=== PATIENT | male | born 1940 | race Hispanic/Latino ===

== ENCOUNTER 2018-06-04 14:01 | Emergency (ER) | payer MEDICARE, OTHER ==
[2018-06-04 15:49] LABS: Basophils % (Auto) 0.4 % (0.0-1.8); Eosinophils % (Auto) 0.3 % (0.0-4.3); Hematocrit 33.3 % (35.5-45.6); Hemoglobin 11.5 gm/dl (11.8-15.2); Lymphocytes # (Auto) 0.4 K/mm3 (1.2-5.4); Lymphocytes % (Auto) 8.6 % (13.4-35.0); Mean Corpuscular HGB Conc 35 % (32-34); Mean Corpuscular Hemoglobin 30 pg (28-32); Mean Corpuscular Volume 87 fl (84-94); Monocytes # (Auto) 0.4 K/mm3 (0.0-0.8); Monocytes % (Auto) 7.8 % (0.0-7.3); Platelet Count 236 K/mm3 (140-440); Red Blood Count 3.82 M/mm3 (3.65-5.03); Red Cell Distribution Width 15.8 % (13.2-15.2)
[2018-06-04 16:06] LABS: Albumin 3.6 g/dL (3.9-5); Calcium 8.6 mg/dL (8.4-10.2)
--- NOTE | 2018-06-04 17:31 | Emergency Department Report ---
ED Altered Mental Status HPI - General Chief Complaint: Altered Mental Status Stated Complaint: GENERAL WEAKNESS Time Seen by Provider: 06/04/18 16:33 Source: family, EMS Mode of arrival: Stretcher Limitations: Altered Mental Status - History of Present Illness Initial Comments: 78-year-old male with a past medical history of Parkinson's disease presents to the hospital after having an episode of hypotension and unresponsiveness. Patient lives alone however, he has a visiting nurse that comes to the home during the daytime. Visiting nurse alerted 911 because patient was unresponsive with a low blood pressure. His stepdaughter is at the bedside and states she does not live with him and was not present during the episode. She states that over the past month patient has been falling frequently. He walks with a cane at his baseline. Patient only complains of left hand pain. He has a chronic flexion of the fourth and fifth digit of the left hand secondary to arthritis. He fell and injured that hand last week and although swelling persists it is improved. He did not receive any imaging studies of his hand since the fall. He denies headache, neck pain, chest pain, fever, shortness of breath, abdominal pain, nausea, vomiting, diarrhea. Patient is apparently eating and drinking appropriately. Apparently the family and primary care doctor or making arrangements with 24-hour home care. Patient denies taking blood thinners including aspirin or Plavix - Related Data Home Medications Medication Instructions Recorded Confirmed Last Taken Unobtainable 12/31/14 12/31/14 Unknown Allergies Allergy/AdvReac Type Severity Reaction Status Date / Time No Known Allergies Allergy Unverified 12/31/14 16:07 ED Review of Systems ROS: Stated complaint: GENERAL WEAKNESS Other details as noted in HPI Comment: All other systems reviewed and negative ED Past Medical Hx - Past Medical History Previous Medical History?: Yes Additional medical history: Parkinson, Diff. urinating - Surgical History Past Surgical History?: Yes Additional Surgical History: Cystoscopy - Social History Smoking Status: Never Smoker Substance Use Type: None - Medications Home Medications: Home Medications Medication Instructions Recorded Confirmed Last Taken Type Unobtainable 12/31/14 12/31/14 Unknown History ED Physical Exam - General Limitations: Altered Mental Status - Other Other exam information: General: No limitations, patient is alert in no acute distress Head exam: Atraumatic, normocephalic Eyes exam: Normal appearance, pupils equal reactive to light, extraocular movements intact ENT: Moist mucous membrane, normal oropharynx Neck exam: Normal inspection, full range of motion, no meningismus nontender Respiratory exam: Clear to auscultation bilateral, no wheezes, rales, crackles Cardiovascular: Normal rate and rhythm, normal heart sounds Abdomen: Soft, nondistended, and nontender, with normal bowel sounds, no rebound, or guarding Extremity: Left hands with flexed fourth and fifth digits at PIP joint. Swelling to the ulnar side of the hand and tenderness to palpation of fourth and fifth proximal phalanges. Back: Normal Inspection, full range of motion, no tenderness Neurologic: Alert, oriented x3, cranial nerves intact, stuttering speech at times, equal arm and leg strength. Sensation grossly intact Psychiatric: normal affect, normal mood Skin: Warm, dry, intact ED Course Vital Signs 06/04/18 06/04/18 06/04/18 14:16 14:30 15:30 Temperature 98.4 F Pulse Rate 85 Respiratory 16 Rate Blood Pressure 159/85 159/85 158/78 O2 Sat by Pulse 98 99 98 Oximetry 06/04/18 06/04/18 06/04/18 16:00 16:30 17:00 Temperature Pulse Rate 85 86 104 H Respiratory 18 19 25 H Rate Blood Pressure 134/74 130/61 129/69 O2 Sat by Pulse 99 98 90 Oximetry 06/04/18 06/04/18 06/04/18 17:52 18:00 18:31 Temperature Pulse Rate 89 87 94 H Respiratory 13 14 26 H Rate Blood Pressure 147/78 134/78 143/65 O2 Sat by Pulse 97 97 Oximetry 06/04/18 19:05 Temperature Pulse Rate 95 H Respiratory 19 Rate Blood Pressure 134/78 O2 Sat by Pulse 98 Oximetry - Consultations Consultation #1: 06/04/18 19:02 Dr Anderson trauma attending at [facility] accepted pt for transfer. - Lab Data Result diagrams: 06/04/18 15:41 06/04/18 15:41 Lab Results 06/04/18 06/04/18 06/04/18 Range/Units 15:41 15:41 15:41 WBC 5.2 (4.5-11.0) K/mm3 RBC 3.82 (3.65-5.03) M/mm3 Hgb 11.5 L (11.8-15.2) gm/dl Hct 33.3 L (35.5-45.6) % MCV 87 (84-94) fl MCH 30 (28-32) pg MCHC 35 H (32-34) % RDW 15.8 H (13.2-15.2) % Plt Count 236 (140-440) K/mm3 Lymph % (Auto) 8.6 L (13.4-35.0) % [place] % (Auto) 7.8 H (0.0-7.3) % Eos % (Auto) 0.3 (0.0-4.3) % Baso % (Auto) 0.4 (0.0-1.8) % Lymph # 0.4 L (1.2-5.4) K/mm3 [place] # 0.4 (0.0-0.8) K/mm3 Eos # 0.0 (0.0-0.4) K/mm3 Baso # 0.0 (0.0-0.1) K/mm3 Seg Neutrophils % 82.9 H (40.0-70.0) % Seg Neutrophils # 4.3 (1.8-7.7) K/mm3 Sodium 143 (137-145) mmol/L Potassium 4.0 (3.6-5.0) mmol/L Chloride 104.8 (98-107) mmol/L Carbon Dioxide 25 (22-30) mmol/L Anion Gap 17 mmol/L BUN 23 H (9-20) mg/dL Creatinine 1.4 (0.8-1.5) mg/dL Estimated GFR 49 ml/min BUN/Creatinine Ratio 16 % Glucose 123 H (75-100) mg/dL POC Glucose (70-105) Calcium 8.6 (8.4-10.2) mg/dL Total Bilirubin 0.60 (0.1-1.2) mg/dL AST 32 (5-40) units/L ALT 7 (7-56) units/L Alkaline Phosphatase 116 (35-129) units/L Total Creatine Kinase (55-170) units/L CK-MB (CK-2) (0.0-4.0) ng/mL CK-MB (CK-2) Rel Index (0-4) Troponin T (0.00-0.029) ng/mL Total Protein 6.2 L (6.3-8.2) g/dL Albumin 3.6 L (3.9-5) g/dL Albumin/Globulin Ratio 1.4 % Triglycerides (2-149) mg/dL Cholesterol (50-199) mg/dL LDL Cholesterol Direct (50-130) mg/dL HDL Cholesterol (40-59) mg/dL Cholesterol/HDL Ratio % TSH 4.590 H (0.270-4.200) mlU/mL Free T4 (0.76-1.46) ng/dL Thyroxine (T4) (4.0-12.0) ug/dL Urine Color (Yellow) Urine Turbidity (Clear) Urine pH (5.0-7.0) Ur Specific [place] (1.003-1.030) Urine Protein (Negative) mg/dL Urine Glucose (UA) (Negative) mg/dL Urine Ketones (Negative) mg/dL Urine Blood (Negative) Urine Nitrite (Negative) Urine Bilirubin (Negative) Urine Urobilinogen (<2.0) mg/dL Ur Leukocyte Esterase (Negative) Urine WBC (Auto) (0.0-6.0) /HPF Urine RBC (Auto) (0.0-6.0) /HPF Urine Mucus /HPF Urine Opiates Screen Urine Methadone Screen Ur Barbiturates Screen Ur Phencyclidine Scrn Ur Amphetamines Screen U Benzodiazepines Scrn Urine Cocaine Screen U Marijuana (THC) Screen Drugs of Abuse Note Plasma/Serum Alcohol (0-0.07) % 06/04/18 06/04/18 06/04/18 Range/Units 15:41 15:41 15:41 WBC (4.5-11.0) K/mm3 RBC (3.65-5.03) M/mm3 Hgb (11.8-15.2) gm/dl Hct (35.5-45.6) % MCV (84-94) fl MCH (28-32) pg MCHC (32-34) % RDW (13.2-15.2) % Plt Count (140-440) K/mm3 Lymph % (Auto) (13.4-35.0) % [place] % (Auto) (0.0-7.3) % Eos % (Auto) (0.0-4.3) % Baso % (Auto) (0.0-1.8) % Lymph # (1.2-5.4) K/mm3 [place] # (0.0-0.8) K/mm3 Eos # (0.0-0.4) K/mm3 Baso # (0.0-0.1) K/mm3 Seg Neutrophils % (40.0-70.0) % Seg Neutrophils # (1.8-7.7) K/mm3 Sodium (137-145) mmol/L Potassium (3.6-5.0) mmol/L Chloride (98-107) mmol/L Carbon Dioxide (22-30) mmol/L Anion Gap mmol/L BUN (9-20) mg/dL Creatinine (0.8-1.5) mg/dL Estimated GFR ml/min BUN/Creatinine Ratio % Glucose (75-100) mg/dL POC Glucose (70-105) Calcium (8.4-10.2) mg/dL Total Bilirubin (0.1-1.2) mg/dL AST (5-40) units/L ALT (7-56) units/L Alkaline Phosphatase (35-129) units/L Total Creatine Kinase (55-170) units/L CK-MB (CK-2) (0.0-4.0) ng/mL CK-MB (CK-2) Rel Index (0-4) Troponin T (0.00-0.029) ng/mL Total Protein (6.3-8.2) g/dL Albumin (3.9-5) g/dL Albumin/Globulin Ratio % Triglycerides (2-149) mg/dL Cholesterol (50-199) mg/dL LDL Cholesterol Direct (50-130) mg/dL HDL Cholesterol (40-59) mg/dL Cholesterol/HDL Ratio % TSH (0.270-4.200) mlU/mL Free T4 1.39 (0.76-1.46) ng/dL Thyroxine (T4) 7.8 (4.0-12.0) ug/dL Urine Color (Yellow) Urine Turbidity (Clear) Urine pH (5.0-7.0) Ur Specific [place] (1.003-1.030) Urine Protein (Negative) mg/dL Urine Glucose (UA) (Negative) mg/dL Urine Ketones (Negative) mg/dL Urine Blood (Negative) Urine Nitrite (Negative) Urine Bilirubin (Negative) Urine Urobilinogen (<2.0) mg/dL Ur Leukocyte Esterase (Negative) Urine WBC (Auto) (0.0-6.0) /HPF Urine RBC (Auto) (0.0-6.0) /HPF Urine Mucus /HPF Urine Opiates Screen Urine Methadone Screen Ur Barbiturates Screen Ur Phencyclidine Scrn Ur Amphetamines Screen U Benzodiazepines Scrn Urine Cocaine Screen U Marijuana (THC) Screen Drugs of Abuse Note Plasma/Serum Alcohol < 0.01 (0-0.07) % 06/04/18 06/04/18 06/04/18 Range/Units 15:41 15:47 17:17 WBC (4.5-11.0) K/mm3 RBC (3.65-5.03) M/mm3 Hgb (11.8-15.2) gm/dl Hct (35.5-45.6) % MCV (84-94) fl MCH (28-32) pg MCHC (32-34) % RDW (13.2-15.2) % Plt Count (140-440) K/mm3 Lymph % (Auto) (13.4-35.0) % [place] % (Auto) (0.0-7.3) % Eos % (Auto) (0.0-4.3) % Baso % (Auto) (0.0-1.8) % Lymph # (1.2-5.4) K/mm3 [place] # (0.0-0.8) K/mm3 Eos # (0.0-0.4) K/mm3 Baso # (0.0-0.1) K/mm3 Seg Neutrophils % (40.0-70.0) % Seg Neutrophils # (1.8-7.7) K/mm3 Sodium (137-145) mmol/L Potassium (3.6-5.0) mmol/L Chloride (98-107) mmol/L Carbon Dioxide (22-30) mmol/L Anion Gap mmol/L BUN (9-20) mg/dL Creatinine (0.8-1.5) mg/dL Estimated GFR ml/min BUN/Creatinine Ratio % Glucose (75-100) mg/dL POC Glucose 118 H (70-105) Calcium (8.4-10.2) mg/dL Total Bilirubin (0.1-1.2) mg/dL AST (5-40) units/L ALT (7-56) units/L Alkaline Phosphatase (35-129) units/L Total Creatine Kinase 297 H (55-170) units/L CK-MB (CK-2) 4.1 H (0.0-4.0) ng/mL CK-MB (CK-2) Rel Index 1.3 (0-4) Troponin T 0.031 H (0.00-0.029) ng/mL Total Protein (6.3-8.2) g/dL Albumin (3.9-5) g/dL Albumin/Globulin Ratio % Triglycerides 45 (2-149) mg/dL Cholesterol 109 (50-199) mg/dL LDL Cholesterol Direct 55 (50-130) mg/dL HDL Cholesterol 58 (40-59) mg/dL Cholesterol/HDL Ratio 1.87 % TSH (0.270-4.200) mlU/mL Free T4 (0.76-1.46) ng/dL Thyroxine (T4) (4.0-12.0) ug/dL Urine Color Yellow (Yellow) Urine Turbidity Clear (Clear) Urine pH 6.0 (5.0-7.0) Ur Specific [place] 1.013 (1.003-1.030) Urine Protein 30 mg/dl (Negative) mg/dL Urine Glucose (UA) Neg (Negative) mg/dL Urine Ketones Tr (Negative) mg/dL Urine Blood Mod (Negative) Urine Nitrite Neg (Negative) Urine Bilirubin Neg (Negative) Urine Urobilinogen < 2.0 (<2.0) mg/dL Ur Leukocyte Esterase Neg (Negative) Urine WBC (Auto) 10.0 H (0.0-6.0) /HPF Urine RBC (Auto) 109.0 (0.0-6.0) /HPF Urine Mucus Few /HPF Urine Opiates Screen Urine Methadone Screen Ur Barbiturates Screen Ur Phencyclidine Scrn Ur Amphetamines Screen U Benzodiazepines Scrn Urine Cocaine Screen U Marijuana (THC) Screen Drugs of Abuse Note Plasma/Serum Alcohol (0-0.07) % 06/04/18 Range/Units 17:17 WBC (4.5-11.0) K/mm3 RBC (3.65-5.03) M/mm3 Hgb (11.8-15.2) gm/dl Hct (35.5-45.6) % MCV (84-94) fl MCH (28-32) pg MCHC (32-34) % RDW (13.2-15.2) % Plt Count (140-440) K/mm3 Lymph % (Auto) (13.4-35.0) % [place] % (Auto) (0.0-7.3) % Eos % (Auto) (0.0-4.3) % Baso % (Auto) (0.0-1.8) % Lymph # (1.2-5.4) K/mm3 [place] # (0.0-0.8) K/mm3 Eos # (0.0-0.4) K/mm3 Baso # (0.0-0.1) K/mm3 Seg Neutrophils % (40.0-70.0) % Seg Neutrophils # (1.8-7.7) K/mm3 Sodium (137-145) mmol/L Potassium (3.6-5.0) mmol/L Chloride (98-107) mmol/L Carbon Dioxide (22-30) mmol/L Anion Gap mmol/L BUN (9-20) mg/dL Creatinine (0.8-1.5) mg/dL Estimated GFR ml/min BUN/Creatinine Ratio % Glucose (75-100) mg/dL POC Glucose (70-105) Calcium (8.4-10.2) mg/dL Total Bilirubin (0.1-1.2) mg/dL AST (5-40) units/L ALT (7-56) units/L Alkaline Phosphatase (35-129) units/L Total Creatine Kinase (55-170) units/L CK-MB (CK-2) (0.0-4.0) ng/mL CK-MB (CK-2) Rel Index (0-4) Troponin T (0.00-0.029) ng/mL Total Protein (6.3-8.2) g/dL Albumin (3.9-5) g/dL Albumin/Globulin Ratio % Triglycerides (2-149) mg/dL Cholesterol (50-199) mg/dL LDL Cholesterol Direct (50-130) mg/dL HDL Cholesterol (40-59) mg/dL Cholesterol/HDL Ratio % TSH (0.270-4.200) mlU/mL Free T4 (0.76-1.46) ng/dL Thyroxine (T4) (4.0-12.0) ug/dL Urine Color (Yellow) Urine Turbidity (Clear) Urine pH (5.0-7.0) Ur Specific [place] (1.003-1.030) Urine Protein (Negative) mg/dL Urine Glucose (UA) (Negative) mg/dL Urine Ketones (Negative) mg/dL Urine Blood (Negative) Urine Nitrite (Negative) Urine Bilirubin (Negative) Urine Urobilinogen (<2.0) mg/dL Ur Leukocyte Esterase (Negative) Urine WBC (Auto) (0.0-6.0) /HPF Urine RBC (Auto) (0.0-6.0) /HPF Urine Mucus /HPF Urine Opiates Screen Presumptive negative Urine Methadone Screen Presumptive negative Ur Barbiturates Screen Presumptive negative Ur Phencyclidine Scrn Presumptive negative Ur Amphetamines Screen Presumptive negative U Benzodiazepines Scrn Presumptive negative Urine Cocaine Screen Presumptive negative U Marijuana (THC) Screen Presumptive negative Drugs of Abuse Note Disclamer Plasma/Serum Alcohol (0-0.07) % - EKG Data -: 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 PRIORS: CT of the head from 12/01/2011. MRI of the brain from 12/13/2011. FINDINGS: There is compression of the left lateral ventricle. No evidence of acute hydrocephalus. There is an acute on chronic left subdural hematoma measuring 3.6 centimeters in thickness. There is a chronic right subdural hematoma measuring 1.6 centimeters thickness. There is 6 millimeters of [id number] midline shift. No evidence of intracranial mass or acute ischemic infarct. The basilar cisterns are patent. There is mucosal thickening of the right maxillary sinus which is likely congestive or inflammatory. The extracranial soft tissues demonstrate no abnormality. The calvarium is intact. The orbits are intact. The mastoid air cells are clear. IMPRESSION: 1. Acute on chronic large left subdural hematoma with 6 millimeters of left to right midline shift. 2. Chronic right subdural hematoma. FINAL REPORT EXAM: XR HAND 3+V LT HISTORY: fall, injury TECHNIQUE: PA, oblique and lateral radiographs of the left hand. PRIORS: None. FINDINGS: There is an acute, transverse fracture through the proximal aspect of the proximal phalanx of the left 4th finger. There is an acute, transverse fracture through the proximal aspect of the left 5th metacarpal. No dislocation. Diffuse osteopenia is seen. Multifocal degenerative changes of the left hand and wrist are seen. No soft tissue abnormality. IMPRESSION: Acute fractures of the left 4th finger and left 5th metacarpal. FINAL REPORT EXAM: CT CERVICAL SPINE WO CON HISTORY: frequent falls, subdural TECHNIQUE: Axial helical imaging through the cervical spine with sagittal and coronal reformatted images obtained. Comparison: None FINDINGS: Bony alignment is normal. The vertebral heights are maintained. There is loss of height of the disc spaces throughout the cervical spine with relative preservation of the C3-C4 disc. There is multiple level endplate osteophyte/disc complex formation, uncovertebral degenerative change and degenerative facet change. Visualization detail of portions of the cervical canal is limited by artifact. However, there appears to be a large central/right paracentral disc protrusion/herniation at C4-C5. There is no evidence of fracture or subluxation. The paraspinous soft tissues are unremarkable. IMPRESSION: 1. No evidence of fracture or subluxation. 2. Appearance of a large central/right paracentral disc protrusion/herniation at C4-C5. If further imaging is required and if there is no clinical contraindication, MRI may be helpful. - Medical Decision Making frequent falls, transient ams + Bilateral subdurals chronic with acute on chronic with evidence of shift on CT GC is 15 and patient nonfocal Accepted to [facility] trauma team CT cervical spine: NO fxt X-ray of the hand reveals fractures that was sustained during a fall last week. - Differential Diagnosis ICH, dehydration, anemia, infection, Parkinson's fracture, NM, encephalopat Critical Care Time: No Critical care attestation.: If time is entered above; I have spent that time in minutes in the direct care of this critically ill patient, excluding procedure time. ED Disposition Clinical Impression: Subdural hematoma, acute, Subdural hematoma, chronic, Hand fracture, right, Frequent falls, Parkinsons disease Disposition: OP ADMIT IP TO THIS HOSP Is pt being admited?: Yes Condition: Stable Time of Disposition: 19:12 (transfer to [facility] ED, awaiting transport)
[2018-06-04 17:50] LABS: Bilirubin,Urine NEG (Negative); Blood,Urine MOD (Negative); Color,Urine Yellow (Yellow); Mucus,Urine FEW /HPF; Urobilinogen,Urine < 2.0 mg/dL (<2.0)
[2018-06-04 18:02] LABS: Creatine Kinase MB 4.1 ng/mL (0.0-4.0)
[2018-06-04 18:05] LABS: Amphetamine Screen,Urine PRESUMPTIVE NEGATIVE; Benzodiazepines Screen,Urine PRESUMPTIVE NEGATIVE; Cannabinoid Screen,Urine PRESUMPTIVE NEGATIVE; Cocaine Screen,Urine PRESUMPTIVE NEGATIVE; Methadone Screen,Urine PRESUMPTIVE NEGATIVE; Opiate Screen,Urine PRESUMPTIVE NEGATIVE
[2018-06-04 18:14] LABS: Chol/HDL Ratio 1.87 %
--- NOTE | 2018-06-04 18:48 | Cat Scan Report ---
FINAL REPORT EXAM: CT HEAD/BRAIN WO CON HISTORY: fequent falls, hypotension, syncope TECHNIQUE: CT of the head was performed without intravenous contrast. PRIORS: CT of the head from 12/01/2011. MRI of the brain from 12/13/2011. FINDINGS: There is compression of the left lateral ventricle. No evidence of acute hydrocephalus. There is an acute on chronic left subdural hematoma measuring 3.6 centimeters in thickness. There is a chronic right subdural hematoma measuring 1.6 centimeters thickness. There is 6 millimeters of [id number] midline shift. No evidence of intracranial mass or acute ischemic infarct. The basilar cisterns are patent. There is mucosal thickening of the right maxillary sinus which is likely congestive or inflammatory. The extracranial soft tissues demonstrate no abnormality. The calvarium is intact. The orbits are intact. The mastoid air cells are clear. IMPRESSION: 1. Acute on chronic large left subdural hematoma with 6 millimeters of left to right midline shift. 2. Chronic right subdural hematoma. Findings were discussed with Dr. Barlow at 3:39 p.m. [facility] on 06/04/2018.
--- NOTE | 2018-06-04 18:54 | XRay Report ---
FINAL REPORT EXAM: XR HAND 3+V LT HISTORY: fall, injury TECHNIQUE: PA, oblique and lateral radiographs of the left hand. PRIORS: None. FINDINGS: There is an acute, transverse fracture through the proximal aspect of the proximal phalanx of the left 4th finger. There is an acute, transverse fracture through the proximal aspect of the left 5th metacarpal. No dislocation. Diffuse osteopenia is seen. Multifocal degenerative changes of the left hand and wrist are seen. No soft tissue abnormality. IMPRESSION: Acute fractures of the left 4th finger and left 5th metacarpal.
[2018-06-04 19:14] VITALS: BP 134/78
--- NOTE | 2018-06-04 19:40 | Cat Scan Report ---
FINAL REPORT EXAM: CT CERVICAL SPINE WO CON HISTORY: frequent falls, subdural TECHNIQUE: Axial helical imaging through the cervical spine with sagittal and coronal reformatted images obtained. Comparison: None FINDINGS: Bony alignment is normal. The vertebral heights are maintained. There is loss of height of the disc spaces throughout the cervical spine with relative preservation of the C3-C4 disc. There is multiple level endplate osteophyte/disc complex formation, uncovertebral degenerative change and degenerative facet change. Visualization detail of portions of the cervical canal is limited by artifact. However, there appears to be a large central/right paracentral disc protrusion/herniation at C4-C5. There is no evidence of fracture or subluxation. The paraspinous soft tissues are unremarkable. IMPRESSION: 1. No evidence of fracture or subluxation. 2. Appearance of a large central/right paracentral disc protrusion/herniation at C4-C5. If further imaging is required and if there is no clinical contraindication, MRI may be helpful.
== END 2018-06-04 20:00 | disposition admitted as inpatient to this hospital (09) ==
LOC: ED 14:01
DX: S06.5X9A Traumatic subdural hemorrhage with loss of consciousness of unspecified duration, initial encounter (principal); G20 Parkinson's disease; I95.9 Hypotension, unspecified; X58.XXXA Exposure to other specified factors, initial encounter; Y93.89 Activity, other specified; Y92.89 Other specified places as the place of occurrence of the external cause; Y99.8 Other external cause status
CPT/HCPCS: 36415; 51701; 70450; 72125; 73130; 80053; 80061; 80307; 81001; 82550; 82553; 82962; 84436; 84439; 84443; 84484; 85025; 93005; 93010; 99285; G0480; 80320